=== PATIENT | female | born 1975 | race African-American/Black ===

== ENCOUNTER 2017-01-23 21:03 | Emergency (ER) | payer OTHER ==
[~2017-01-23] VITALS: Ht 157.5 cm; Wt 97.0 kg
[~2017-01-23 21:03] MED LIST: DIVA250T3 PO
[2017-01-23 21:13] VITALS: PULSE 78; RESP 18; TEMP 98.3; O2SAT 98
[2017-01-23] MEDS ORDERED: TOPA50TA7 PO (21:19)
[2017-01-23] MEDS ORDERED: SODIUM CHLORIDE 0.9% FLUSH 10 ML FLUSH IVF PRN (21:30)
--- NOTE | 2017-01-23 21:33 | PD ---
HPI Chief Complaint: Seizure Time Seen by Provider: 21:15 Travel History International Travel<30 days: No Contact w/Intl Traveler<30days: No Traveled to known affect area: No History of Present Illness HPI The patient is a 41-year-old [place] female who presents emergency department for seizure. The patient has a history of seizures and was treated with Depakote and Topamax, but was taken off the Topamax. The patient states she originally was from [place], had a primary physician and neurologist in [place]. However, she moved to [place] and does not have a local primary physician. The patient has been taking her Depakote as directed, 500 mg twice a day. The patient states she was in [place]azid[place] earlier today when apparently she was staring and then had a small amount of twitching. There was no loss of consciousness. She does complain of intermittent headaches, her headache has currently resolved. The patient denies any focal deficits including weakness of the upper or lower extremity is, numbness, tingling, or visual acuity changes. Symptoms are mild, exacerbated by history of seizures, and self alleviating. PFSH Past Medical History Diminished Hearing: No Immunizations Current: Yes Seizures: Yes ?: Not Tubal Ligation: Yes Past Surgical History Gynecologic Surgery: Yes Social History Alcohol Use: No Tobacco Use: No (never) Substance Use: No Allergies-Medications (Allergen,Severity, Reaction): Coded Allergies: Dilantin (Verified Adverse Reaction, Severe, Seizures, 01/23/17) Reported Meds & Prescriptions Reported Meds & Active Scripts Active Reported Divalproex ER (Divalproex Sodium) Unknown Strength Elvira 500 PO BID Review of Systems Except as stated in HPI: all other systems reviewed are Neg General / Constitutional: No: Fever Eyes: No: Blurred Vision HENT: No: Lightheadedness Cardiovascular: No: Chest Pain or Discomfort Respiratory: No: Shortness of Breath Gastrointestinal: No: Nausea, Vomiting, Abdominal Pain Genitourinary: No: Incontinence Musculoskeletal: No: Weakness Neurologic: Positive: Headache (intermittent, currently resolved), Seizures, No: Incontinence Physical Exam Narrative GENERAL: Awake, alert, 41-year-old female who appears her stated age is in no acute respiratory distress. SKIN: Focused skin assessment warm/dry. HEAD: Atraumatic. Normocephalic. EYES: Pupils equal and round. Pupils are 4 mm bilateral and reactive. EOMs are intact. Icterus. No injection or drainage. ENT: No nasal bleeding or discharge. Mucous membranes pink and moist. NECK: Trachea midline. No JVD. CARDIOVASCULAR: Regular rate and rhythm. No murmur appreciated. RESPIRATORY: No accessory muscle use. Clear to auscultation. Breath sounds equal bilaterally. GASTROINTESTINAL: Abdomen soft, non-tender, nondistended. No rebound tenderness. MUSCULOSKELETAL: No obvious deformities. No clubbing. No cyanosis. No edema. NEUROLOGICAL: Awake and alert. No obvious cranial nerve deficits. Motor grossly within normal limits. Normal speech. Nonfocal. Oriented 4. Follows commands without difficulty. PSYCHIATRIC: Appropriate mood and affect; insight and judgment normal. Data Data Last Documented VS Vital Signs Date Time Temp Pulse Resp B/P Pulse Ox O2 Delivery O2 Flow Rate FiO2 01/23/17 21:47 16 100 Room Air 01/23/17 21:13 98.3 78 Orders Complete Blood Count With Diff (01/23/17 21:26) Valproic Acid (Depakene) (01/23/17 21:26) Blood Glucose (01/23/17 21:26) Ecg Monitoring (01/23/17 21:26) Iv Access Insert/Monitor (01/23/17 21:26) Oximetry (01/23/17 21:26) Comprehensive Metabolic Panel (01/23/17 21:26) Sodium Chloride 0.9% Flush (Ns Flush) (01/23/17 21:30) Labs Laboratory Tests Test 01/23/17 21:20 White Blood Count 4.5 TH/MM3 Red Blood Count 4.40 MIL/MM3 Hemoglobin 12.1 GM/DL Hematocrit 35.9 % Mean Corpuscular Volume 81.7 FL Mean Corpuscular Hemoglobin 27.6 PG Mean Corpuscular Hemoglobin 33.7 % Concent Red Cell Distribution Width 14.4 % Platelet Count 154 TH/MM3 Mean Platelet Volume 11.4 FL Neutrophils (%) (Auto) 61.6 % Lymphocytes (%) (Auto) 28.6 % Monocytes (%) (Auto) 8.5 % Eosinophils (%) (Auto) 0.9 % Basophils (%) (Auto) 0.4 % Neutrophils # (Auto) 2.8 TH/MM3 Lymphocytes # (Auto) 1.3 TH/MM3 Monocytes # (Auto) 0.4 TH/MM3 Eosinophils # (Auto) 0.0 TH/MM3 Basophils # (Auto) 0.0 TH/MM3 CBC Comment DIFF FINAL Differential Comment Sodium Level 138 MEQ/L Potassium Level 3.7 MEQ/L Chloride Level 105 MEQ/L Carbon Dioxide Level 25.2 MEQ/L Anion Gap 8 MEQ/L Blood Urea Nitrogen 14 MG/DL Creatinine 0.73 MG/DL Estimat Glomerular Filtration 106 ML/MIN Rate Random Glucose 90 MG/DL Calcium Level 8.5 MG/DL Total Bilirubin 0.2 MG/DL Aspartate Amino Transf 16 U/L (AST/SGOT) Alanine Aminotransferase 14 U/L (ALT/SGPT) Alkaline Phosphatase 44 U/L Total Protein 8.2 GM/DL Albumin 3.4 GM/DL Valproic Acid (Depakene) Level 50 MCG/ML MDM Medical Decision Making Medical Screen Exam Complete: Yes Emergency Medical Condition: Yes Medical Record Reviewed: Yes Interpretation(s) Laboratory Tests Test 01/23/17 21:20 White Blood Count 4.5 TH/MM3 Red Blood Count 4.40 MIL/MM3 Hemoglobin 12.1 GM/DL Hematocrit 35.9 % Mean Corpuscular Volume 81.7 FL Mean Corpuscular Hemoglobin 27.6 PG Mean Corpuscular Hemoglobin 33.7 % Concent Red Cell Distribution Width 14.4 % Platelet Count 154 TH/MM3 Mean Platelet Volume 11.4 FL Neutrophils (%) (Auto) 61.6 % Lymphocytes (%) (Auto) 28.6 % Monocytes (%) (Auto) 8.5 % Eosinophils (%) (Auto) 0.9 % Basophils (%) (Auto) 0.4 % Neutrophils # (Auto) 2.8 TH/MM3 Lymphocytes # (Auto) 1.3 TH/MM3 Monocytes # (Auto) 0.4 TH/MM3 Eosinophils # (Auto) 0.0 TH/MM3 Basophils # (Auto) 0.0 TH/MM3 CBC Comment DIFF FINAL Differential Comment Sodium Level 138 MEQ/L Potassium Level 3.7 MEQ/L Chloride Level 105 MEQ/L Carbon Dioxide Level 25.2 MEQ/L Anion Gap 8 MEQ/L Blood Urea Nitrogen 14 MG/DL Creatinine 0.73 MG/DL Estimat Glomerular Filtration 106 ML/MIN Rate Random Glucose 90 MG/DL Calcium Level 8.5 MG/DL Total Bilirubin 0.2 MG/DL Aspartate Amino Transf 16 U/L (AST/SGOT) Alanine Aminotransferase 14 U/L (ALT/SGPT) Alkaline Phosphatase 44 U/L Total Protein 8.2 GM/DL Albumin 3.4 GM/DL Valproic Acid (Depakene) Level 50 MCG/ML Differential Diagnosis Differential diagnosis includes seizure, focal seizure, subtherapeutic Depakote level, breakthrough seizure, hyponatremia, hypocalcemia. Narrative Course IV was established, labs are drawn and sent, and the patient was placed on cardiac telemetry monitoring and continuous pulse oximetry monitoring. The patient's LFTs are normal. Sodium and calcium are normal. Depakote level is therapeutic at 50. Patient had no further seizure activity. Patient is stable for discharge. The patient does not currently drive, states she's never driven and uses public transportation. The patient will be allowed to use the phone to contact the family/friends member to drive her home. Patient is stable for outpatient follow-up. She is advised to find a local primary physician and neurologist as she recently moved from [place] the local area and has no transportation to her physicians that are located in [place]. Diagnosis Primary Impression: Seizure Patient Instructions: General Instructions Additional Instructions: Continue your current medications as previously directed. Follow-up with a primary physician and/or neurologist. Return if symptoms worsen or progress. Disposition: 01 DISCHARGE HOME Condition: Stable Beto Hendricks MD Jan 23, 2017 21:33
[2017-01-23 21:47] VITALS: RESP 16; O2SAT 100
[2017-01-23 21:49] LABS: AUTOMATED NEUTROPHIL # 2.8 TH/MM3 (1.8-7.7); BASOPHIL % 0.4 % (0.0-2.0); EOSINOPHIL % 0.9 % (0.0-4.0); HEMATOCRIT 35.9 % (35.0-46.0); HEMO FLAGS DIFF FINAL; LYMPH % 28.6 % (9.0-44.0); LYMPHOCYTE # 1.3 TH/MM3 (1.0-4.8); MEAN CELL VOLUME 81.7 FL (80.0-100.0); MEAN CORPUSCULAR HEMOGLOBIN 27.6 PG (27.0-34.0); MEAN CORPUSCULAR HGB CONC 33.7 % (32.0-36.0); MONO % 8.5 % (0.0-8.0); NEUT % 61.6 % (16.0-70.0); PLATELET COUNT 154 TH/MM3 (150-450); RED CELL DISTRIBUTION WIDTH 14.4 % (11.6-17.2); WHITE BLOOD COUNT 4.5 TH/MM3 (4.0-11.0)
[2017-01-23 22:11] LABS: ALKALINE PHOSPHATASE 44 U/L (45-117); ALT (GPT) 14 U/L (10-53); ANION GAP 8 MEQ/L (5-15); AST (GOT) 16 U/L (15-37); BICARBONATE 25.2 MEQ/L (21.0-32.0); BLOOD UREA NITROGEN 14 MG/DL (7-18); CHLORIDE 105 MEQ/L (98-107); GLOMERULAR FILTRATION RATE 106 ML/MIN (>89); SODIUM (NA) 138 MEQ/L (136-145); TOTAL BILIRUBIN ADULT 0.2 MG/DL (0.2-1.0)
[2017-01-23 22:12] LABS: POTASSIUM 3.7 MEQ/L (3.5-5.1)
== END 2017-01-23 23:04 | disposition home or self-care (01) ==
LOC: NEPC 21:03
DX: R56.9 Unspecified convulsions (principal)
CPT/HCPCS: 80053; 80164; 85025; 99284